=== PATIENT | female | born 1985 | race Caucasian/White ===

== ENCOUNTER 2018-01-07 00:36 | Emergency (ER) | payer OTHER ==
[~2018-01-07 00:36] MED LIST: IMPLANON68 MG; PRENATAL ONE D1 EACH PO; TORADOL10 MG PO; ZOFRAN4 M1 SL
--- NOTE | 2018-01-07 00:44 | ED HEADACHE COMPLAINT ---
History of Present Illness General Chief Complaint: Headache Stated Complaint: " MY HEAD HURTS COULD BE FROM NEW MEDS IM ON" Source: patient Exam Limitations: no limitations Vital Signs & Intake/Output Vital Signs & Intake/Output Vital Signs Date Time Temp Pulse Resp B/P B/P Pulse O2 O2 Flow FiO2 Mean Ox Delivery Rate 01/07 107 98.5 134/96 01/07 0104 90 16 98 Room Air Allergies Coded Allergies: doxycycline (Intermediate, HIVES 03/10/16) Reconcile Medications Cyclobenzaprine HCl 10 MG TABLET 1 TAB PO 4 TIMES/DAY PRN MUSCLE SPASM Etonogestrel (Implanon) 68 MG IMPLANT CONTROL (Reported) Ibuprofen 600 MG TABLET 1 TAB PO TID PRN PAIN with food Ketorolac Tromethamine (Toradol) 10 MG TAB 1 TAB PO TID PRN HEADACHE Methylprednisolone (Unknown Strength) TAB.DS.PK (Unknown Dose) BACK PAIN ( Reported) Ondansetron (Zofran Odt) 4 MG TAB.RAPDIS 1 TAB SL TID PRN NAUSEA Ondansetron (Zofran Odt) 4 MG TAB.RAPDIS 1 TAB SL Q4-6 PRN NAUSEA Vit No.129/Iron/FA ( One Daily Tablet) 27 MG IRON-800 MCG TABLET 1 TAB PO DAILY (Reported) Triage Nurses Notes Reviewed? yes Onset: Gradual Duration: day(s): Timing: recent history Quality/Severity: moderate Modifying Factors: Improves With: rest. Worsens With: movement. Associated Symptoms: back pain HPI: 32 yo woman, h/o migraines, presents with headache x 1 day. She notes that she recently started on a medrol dose pack yesterday and awoke with diffuse headache, associated with nausea, photophobia. She has no fever, chills, vision changes, dizziness, meningismus. She is otherwise well. Past History Travel History Traveled to [place] past 21 day No Medical History Any Pertinent Medical History? see below for history Neurological: migraine EENT: NONE Cardiovascular: NONE Respiratory: NONE Gastrointestinal: NONE Hepatic: NONE Renal: NONE Musculoskeletal: NONE Psychiatric: NONE Endocrine: NONE Blood Disorders: NONE Cancer(s): NONE PSYCHOLOGIST EXPERIMENTAL/Reproductive: NONE Surgical History Surgical History: none Psychosocial History What is your primary language [place] Family History Hx Contributory? No Review of Systems Review of Systems Constitutional: Reports: no symptoms. Eyes: Reports: no symptoms. Ears, Nose, Throat, Mouth: Reports: no symptoms. Respiratory: Reports: no symptoms. Cardiovascular: Reports: no symptoms. Gastrointestinal/Abdominal: Reports: no symptoms. Genitourinary: Reports: no symptoms. Musculoskeletal: Reports: no symptoms. Skin: Reports: no symptoms. Neurological/Psychological: Reports: no symptoms. Hematologic/Endocrine: Reports: no symptoms. Endocrine: Reports: no symptoms. Immunologic/Allergic: Reports: no symptoms. All Other Systems: Reviewed and Negative Physical Exam Physical Exam General Appearance: well developed/nourished, mild distress Head: atraumatic, normal appearance, diffuse muscular scalp tenderness to palpation Eyes: Bilateral: normal appearance, PERRL, EOMI. Ears, Nose, Throat: normal pharynx, normal ENT inspection Neck: normal inspection, supple, full range of motion, no midline tenderness, paracervical muscle spasm to palpation Respiratory: normal breath sounds, chest non-tender, no respiratory distress, quiet respiration, lungs clear Cardiovascular: regular rate/rhythm Gastrointestinal: normal bowel sounds, soft, non-tender, no organomegaly Back: normal inspection, normal range of motion Extremities: normal inspection, normal capillary refill, normal range of motion, no edema Psychiatric: awake, alert, oriented x 3 Cranial Nerves: normal hearing, normal speech, PERRL Coordination/Gait: normal finger to nose, normal gait Motor/Sensory: no motor/sensory deficits Reflexes: 1+: bicep (R), bicep (L). Skin: intact, normal color, warm/dry Core Measures Sepsis Present: No Sepsis Focused Exam Completed? No Progress Differential Diagnosis: cluster SERRA, migraine SERRA, tension SERRA Plan of Care: Current Medications Sig/Lester Start time Last Medication Dose Stop Time Status Admin Acetaminophen 1,000 MG ONCE ONE 01/07 115 UNVr (Ofirmev) 01/07 129 N/A 1 UNIT (No Carrier) Cyclobenzaprine HCl 10 MG ONCE ONE 01/07 115 UNVr (Flexeril 10MG Tab) 01/08 116 Ketorolac 30 MG ONCE ONE 01/07 115 UNVr Tromethamine 01/08 116 (Toradol) Ondansetron HCl 4 MG ONCE ONE 01/07 115 UNVr (Zofran) 01/08 116 Departure Departure Disposition: HOME OR SELF CARE Condition: Stable Clinical Impression Primary Impression: Headache Referrals: Patient Has No Primary Care Dr (PCP/Family) Departure Forms: Customer Survey General Discharge Information Prescriptions: Current Visit Scripts Ibuprofen 1 TAB PO TID PRN PAIN #30 TAB with food Cyclobenzaprine HCl 1 TAB PO 4 TIMES/DAY PRN MUSCLE SPASM #30 TAB Ref 1 Ondansetron (Zofran Odt) 1 TAB SL TID PRN NAUSEA #10 TAB Ref 1 Comments 01/07/18, 2:45AM... Pt feeling better... feels comfortable going home... close follow up advised... sent rx for flexeril, zofran, ibuprofen
[2018-01-07] MEDS ORDERED: METHYLPREDNISOLO4 M2 (02:08)
[2018-01-07] MEDS ORDERED: IBUPROFEN600 M1 PO (02:44)
[2018-01-07] MEDS ORDERED: CYCLOBENZAPRINE10 M1 PO (02:45)
[2018-01-07] MEDS ORDERED: ZOFRAN ODT4 M1 SL (02:45)
[2018-01-07 02:51] VITALS: BP 121/69
== END 2018-01-07 02:55 ==
LOC: ERH 00:36
DX: R51 Headache (principal)
CPT/HCPCS: 96374; 96375; J0131; J1885; J2405